=== PATIENT | male | born 1950 | race Caucasian/White ===

== ENCOUNTER → 2017-06-27 13:36 | Outpatient (CLI) | payer MEDICARE, OTHER, SELFPAY ==
--- NOTE | 2017-06-27 13:50 | CT_ITS ---
TECHNIQUE: Low dose scanning through the for the purposes of evaluating coronary artery calcification. Computer processing software analysis determined the calcium scoring FINDINGS The coronary artery calcium smart score is 46 = Imply reflecting mild plaque burden. Moderate cardiovascular disease risk . The heart appears normal in size no pericardial effusion. ascending aorta is upper normal caliber. 3.8 cm diameter maximally. Scant calcification is seen at only at the ascending aorta with no significant calcification at the aortic arch or descending aorta. But limited visualization of lungs with no remarkable findings. Mild chronic changes but no active disease.. Size IMPRESSION: 1. Coronary calcium score of 46 = mild plaque burden with moderate CVD risk.
== END ==
PROVIDERS: Family Provider Family Medicine; PCP Family Medicine; Visit Provider Internal Medicine
DX: I48.91 Unspecified atrial fibrillation (principal); R00.2 Palpitations; R42 Dizziness and giddiness; R06.83 Snoring; R53.83 Other fatigue
CPT/HCPCS: 75571

== ENCOUNTER → 2017-06-29 06:35 | Outpatient (CLI) | payer MEDICARE, OTHER, SELFPAY ==
--- NOTE | 2017-06-29 06:38 | NM_ITS ---
History and Indications: Hypertension, hyperlipidemia and family history Procedure: Patient received a 0.4 mg of Lexiscan, resting heart rate was 55 bpm, resting blood pressure 158/87, with scan maximum heart rate achieved 114 bpm, which is less than 85% of the maximum predicted heart rate and a blood pressure was 165/98. With Lexiscan patient complained of shortness of breath and nausea Electrocardiogram: Resting electrocardiogram showed sinus bradycardia, with Lexiscan occasional premature ventricular complex seen, there is less than 1.[address] segment depression noted from the baseline EKG. The EKG portion of the Lexiscan Myoview is nondiagnostic. Cardiac stress and resting SPECT images: Cardiac stress and resting SPECT images were Myoview 10.8 mCi at rest and 32.2 mCi at stress, gated SPECT further analysis of segmental wall motion and calculation of the ejection fraction also done. Cardiac stress and rest images show uniform myocardial activity without segmental perfusion abnormality, computer derived ejection fraction is 53% with no obvious regional wall motion abnormality, right ventricle is normal size and contractility. Conclusion: 1. The EKG portion of the Lexiscan Myoview is nondiagnostic. 2. No obvious scintigraphic evidence of reversible ischemia seen, computer derived ejection fraction is 53% with no obvious regional wall motion abnormality, right ventricle is normal size and contractility. 3. Normal Lexiscan Myoview study.
--- NOTE | 2017-06-29 07:37 | HMH.ITSHM ---
ELIQUIS MELOXICAM DILTIAZEM LOSARTAN RABEPRAZOLE SODIUM PROMETHAZINE CEPHALEXIN CYCLOBENZAPRINE
== END ==
PROVIDERS: Family Provider Family Medicine; PCP Family Medicine; Visit Provider Internal Medicine
DX: I48.0 Paroxysmal atrial fibrillation; R06.02 Shortness of breath; R11.0 Nausea
CPT/HCPCS: 78452; 93017; A9502; J2785

== ENCOUNTER → 2017-07-11 08:11 | Outpatient (CLI) | payer MEDICARE, OTHER, SELFPAY ==
[2017-07-11 09:32] LABS: Alanine Aminotransferase 34 U/L (12-78); Albumin Level 3.8 gm/dL (3.4-5.0); Alkaline Phosphatase 103 U/L (46-116); Aspartate Amino Transferase 19 U/L (15-37); Bilirubin,Direct 0.2 mg/dL (0.0-0.2); Bilirubin,Total 0.6 mg/dL (0.2-1.0); Chol/HDL Ratio 5.1 (1-3.5); Cholesterol 198 mg/dL (140-200); HDL Cholesterol 39 mg/dL (27-67); LDL Cholesterol 142 mg/dL (0-130); Total Protein,Serum 6.6 gm/dL (6.4-8.2); Triglycerides 85 mg/dL (30-200); VLDL Cholesterol 17 mg/dL (0-40)
== END ==
PROVIDERS: PCP Family Medicine; Visit Provider Internal Medicine Cardiovascular Disease
DX: R00.2 Palpitations (principal); R42 Dizziness and giddiness; R06.83 Snoring; I48.0 Paroxysmal atrial fibrillation; I10 Essential (primary) hypertension; R53.83 Other fatigue
CPT/HCPCS: 36415; 80061; 80076

== ENCOUNTER → 2017-10-05 07:14 | Outpatient (CLI) | payer MEDICARE, OTHER, SELFPAY ==
[2017-10-05 10:25] LABS: Chol/HDL Ratio 3.7 (1-3.5); Cholesterol 134 mg/dL (140-200); HDL Cholesterol 36 mg/dL (27-67); LDL Cholesterol 84 mg/dL (0-130); Triglycerides 70 mg/dL (30-200); VLDL Cholesterol 14 mg/dL (0-40)
[2017-10-06 11:56] LABS: Alanine Aminotransferase 29 U/L (12-78); Albumin Level 3.9 gm/dL (3.4-5.0); Alkaline Phosphatase 106 U/L (46-116); Aspartate Amino Transferase 19 U/L (15-37); Bilirubin,Direct 0.2 mg/dL (0.0-0.2); Bilirubin,Indirect 0.2 mg/dL (0.0-0.9); Bilirubin,Total 0.4 mg/dL (0.2-1.0); Total Protein,Serum 6.6 gm/dL (6.4-8.2)
== END ==
PROVIDERS: Visit Provider Internal Medicine Cardiovascular Disease
DX: R00.2 Palpitations (principal); I10 Essential (primary) hypertension; R42 Dizziness and giddiness; I48.0 Paroxysmal atrial fibrillation; R53.83 Other fatigue
CPT/HCPCS: 36415; 80061; 80076

== ENCOUNTER → 2017-12-06 08:12 | Outpatient (CLI) | payer MEDICARE, OTHER, SELFPAY ==
[2017-12-06 09:17] LABS: Alanine Aminotransferase 35 U/L (12-78); Albumin Level 3.8 gm/dL (3.4-5.0); Alkaline Phosphatase 108 U/L (46-116); Aspartate Amino Transferase 19 U/L (15-37); Bilirubin,Direct 0.1 mg/dL (0.0-0.2); Bilirubin,Indirect 0.5 mg/dL (0.0-0.9); Bilirubin,Total 0.6 mg/dL (0.2-1.0); Cholesterol 145 mg/dL (140-200); HDL Cholesterol 36 mg/dL (27-67); LDL Cholesterol 89 mg/dL (0-130); Total Protein,Serum 6.6 gm/dL (6.4-8.2); Triglycerides 102 mg/dL (30-200); VLDL Cholesterol 20 mg/dL (0-40)
== END ==
PROVIDERS: Family Provider Family Medicine; PCP Family Medicine; Visit Provider Internal Medicine Cardiovascular Disease
DX: E78.4 Other hyperlipidemia (principal); I48.0 Paroxysmal atrial fibrillation; R53.83 Other fatigue; R06.09 Other forms of dyspnea; I10 Essential (primary) hypertension
CPT/HCPCS: 36415; 80061; 80076

== ENCOUNTER → 2018-05-18 12:26 | Outpatient (CLI) | payer MEDICARE, OTHER, SELFPAY ==
--- NOTE | 2018-05-18 12:28 | XR_ITS ---
XR chest 2V HISTORY: ITS.REASON: amiodarone therapy ORDERING PHYSICIAN: DEVORA Allen PATIENT AGE: 67 years COMPARISON: None FINDINGS: There are no previous exams available for comparison. Unremarkable cardiovascular structures. Slight increased markings are present in the left perihilar region. These are nonspecific and could be due to area of scarring/volume loss. The findings are not typical for amiodarone lung however, that entity cannot be excluded. Consider follow-up exam. No lobar consolidation or collapse. No acute bony findings. Mild degenerative change thoracic spine. IMPRESSION: Slight increased markings in left perihilar region nonspecific and may due to an area of fibrosis or atelectasis. Not typical for amiodarone toxicity however follow-up is suggested to confirm stability
[2018-05-18 14:14] LABS: Alanine Aminotransferase 38 U/L (12-78); Alkaline Phosphatase 114 U/L (46-116); Aspartate Amino Transferase 19 U/L (15-37); Bilirubin,Direct 0.2 mg/dL (0.0-0.2); Bilirubin,Indirect 0.4 mg/dL (0.0-0.9); Bilirubin,Total 0.6 mg/dL (0.2-1.0); Free Thyroxine Index 3.6 ug/dL (5.93-13.13); T4 (Thyroxine) 11.9 ug/dl (4.7-13.3); Thyroid Stimulating Hormone 1.31 uIU/ml (0.358-3.740); Total Protein,Serum 6.9 gm/dL (6.4-8.2); Triiodothryronine (T3) Uptake 30 % (31-39)
== END ==
PROVIDERS: PCP Family Medicine; Visit Provider Physician Assistant
DX: Z79.899 Other long term (current) drug therapy (principal)
CPT/HCPCS: 36415; 71046; 80076; 84436; 84443; 84479

== ENCOUNTER → 2019-01-24 10:34 | Outpatient (CLI) | payer MEDICARE, BC, SELFPAY ==
--- NOTE | 2019-01-24 | ECG_ITS ---
APPROVED REPORT Exam: Resting ECG HR:90 bpm ECG Measurements Heart Rate 90 AXES QRSd 78 QRS 65 QT 364 T -11 QTc 445 <Conclusion> Atrial flutter with variable AV block Abnormal QRS-T angle, consider primary T wave abnormality Abnormal ECG Electronically signed by : Christopher Martins, 01/25/2019 08:57:57
== END ==
PROVIDERS: PCP Family Medicine; Visit Provider Internal Medicine Cardiovascular Disease
DX: I48.91 Unspecified atrial fibrillation (principal)
CPT/HCPCS: 93005

== ENCOUNTER 2019-02-03 12:56 | Inpatient (IN) ==
[2019-02-03 13:19] LABS: Basophils % 0.4 % (0.1-2.0); Eosinophils % 0.7 % (0.1-12.0); Hematocrit 45.6 % (42.0-52.0); Hemoglobin 15.2 g/dL (14.1-18.0); Lymphocytes # 1.3 K/mm3 (0.7-4.5); Lymphocytes % 28.6 % (10-50); Mean Corpuscular HGB Conc 33.4 g/dL (31.8-35.4); Mean Corpuscular Volume 85.5 fl (80-94); Mean Platelet Volume 8.4 fl (7.4-10.4); Monocytes # 0.4 K/mm3 (0.1-1.0); Monocytes % 7.5 % (1.7-9.3); Neutrophils # 2.9 K/mm3 (1.8-7.8); Neutrophils % 62.7 % (37.0-80.0); Platelet Count 167 K/mm3 (142-424); Red Blood Count 5.33 M/mm3 (4.60-6.20); Red Cell Distribution Width 12.9 % (11.5-17.5); White Blood Count 4.6 K/mm3 (4.8-10.8)
--- NOTE | 2019-02-03 13:27 | Emergency Department Note ---
ED Disposition Clinical Impression: Atrial flutter Qualifiers: Atrial flutter type: unspecified Qualified Code(s): I48.92 - Unspecified atrial flutter Disposition: Admitted as Observation Condition on Discharge: Fair Referrals: Christopher Cottrell MD [Primary Care Provider] - - Critical Care Critical Care Time: Yes Attestation: On 02/03/19, the high probability of a clinically significant, sudden or life threatening deterioration of the following system(s) required my full and direct attention, intervention and personal management. The time I documented below is in addition to time spent performing reported procedures but includes the following listed in this critical care notation. Total Critical Care Time: 40 Vital system(s) involved:: Circulatory Failure My critical care processes included: Assessment & monitoring of V/S, Initial and Re-exams, Data Review/Interpretation, Coordinating Care, Medication Orders and management, Documentation Medical Decision Making - Rainer Inquiry Pt receiving controlled substance: No Vital Signs: 02/03/19 13:22 02/03/19 13:29 02/03/19 13:40 Temperature 98 F Temperature Source Oral Pulse Rate [Left Radial] 188 H 183 H 183 H Respiratory Rate 22 22 Blood Pressure [Right Arm] 151/95 H 153/97 H 140/102 H Blood Pressure Mean [Right Arm] 113 115 114 Blood Pressure Source [Right Arm] Blood Pressure Position [Right Arm] Sitting Sitting Sitting 02 Sat by Pulse Oximetry 98 96 97 Oxygen Delivery Method Room Air Room Air Room Air 02/03/19 13:50 02/03/19 13:55 02/03/19 14:12 Temperature Temperature Source Pulse Rate [Left Radial] 99 H 94 H 66 Respiratory Rate Blood Pressure [Right Arm] 138/78 126/82 140/78 Blood Pressure Mean [Right Arm] 98 96 98 Blood Pressure Source [Right Arm] Automatic Cuff Blood Pressure Position [Right Arm] Sitting Sitting Sitting 02 Sat by Pulse Oximetry 94 L 94 L 97 Oxygen Delivery Method Room Air Room Air Room Air 02/03/19 14:34 02/03/19 15:00 02/03/19 15:42 Temperature Temperature Source Pulse Rate [Left Radial] 123 H 64 106 H Respiratory Rate Blood Pressure [Right Arm] 129/69 131/67 132/71 Blood Pressure Mean [Right Arm] 89 88 91 Blood Pressure Source [Right Arm] Automatic Cuff Automatic Cuff Automatic Cuff Blood Pressure Position [Right Arm] Sitting Sitting Sitting 02 Sat by Pulse Oximetry 96 95 97 Oxygen Delivery Method Room Air Room Air Room Air 02/03/19 16:16 Temperature Temperature Source Pulse Rate [Left Radial] 94 H Respiratory Rate Blood Pressure [Right Arm] 112/72 Blood Pressure Mean [Right Arm] 85 Blood Pressure Source [Right Arm] Automatic Cuff Blood Pressure Position [Right Arm] Sitting 02 Sat by Pulse Oximetry 96 Oxygen Delivery Method Room Air - Lab Data Lab Results 02/03/19 13:07: WBC 4.6 L, RBC 5.33, Hgb 15.2, Hct 45.6, MCV 85.5, MCH 28.6, MCHC 33.4, RDW 12.9, Plt Count 167, MPV 8.4, Neut % (Auto) 62.7, Lymph % (Auto) 28.6, [place] % (Auto) 7.5, Eos % (Auto) 0.7, Baso % (Auto) 0.4, Neut # (Auto) 2.9, Lymph # (Auto) 1.3, [place] # (Auto) 0.4, Eos # (Auto) 0.0, Baso # (Auto) 0.0 02/03/19 13:07: Sodium 141, Potassium 3.3 L, Chloride 102, Carbon Dioxide 26, Anion Gap 16.3 H, BUN 12, Creatinine 1.36 H, Estimated Creat Clear 56, Estimated GFR 52 L, Est GFR ( Amer) 63, Glucose 95, Calcium 9.5, Troponin I < 0.02 Result diagrams: 02/03/19 13:07 02/03/19 13:07 Orders (Tests/Meds): ED MEDICATIONS Generic Name Dose Route Start Last Admin Trade Name Freq PRN Reason Stop Dose Admin Diltiazem HCl 100 mg/ Sodium 100 mls @ 5 mls/hr 02/03/19 13:45 02/03/19 13:50 Chloride IV 03/05/19 13:44 5 mls/hr .Q20H NELLY Administration Protocol Discontinued Medications Generic Name Dose Route Start Last Admin Trade Name Freq PRN Reason Stop Dose Admin Adenosine 6 mg 02/03/19 14:01 02/03/19 13:05 Adenosine 6mg/2ml Vial IV 02/03/19 14:02 6 mg ONCE ONE Administration Adenosine 12 mg 02/03/19 14:01 08/31/19 13:18 Adenosine 6mg/2ml Vial IV 02/03/19 14:02 12 mg ONCE ONE Administration Diltiazem HCl 20 mg 02/03/19 13:31 02/03/19 13:45 Cardizem 25mg/5ml Vial IV 02/03/19 13:32 20 mg ONCE ONE Administration Potassium Chloride 40 meq 02/03/19 14:17 02/03/19 14:22 Klor-Con 20meq Tablet PO 02/03/19 14:18 40 meq ONCE ONE Administration - Radiology Data #1 Image(s): Chest Image Reviewed: Yes I reviewed the patient's radiology image Preliminary Findings: Normal/NAD - ECG Data Tracing #3 EKG interpreted by Pb Hardy MD: Rhythm: Narrow complex tachycardia, regular Rate: 190 [place]: normal Ectopy: none Conduction: normal ST Segment Changes: Nonspecific T Wave Changes: none Q Waves: none No evidence of acute ischemia or injury EKG #2 interpreted by Pb Hardy MD: Rhythm: Atrial flutter, variable block Rate: 103 [place]: normal Ectopy: none Conduction: normal ST Segment Changes: none T Wave Changes: none Q Waves: none No evidence of acute ischemia or injury EKG #3 interpreted by Pb Hardy MD: Rhythm: a. flutter Rate: 93 [place]: normal Ectopy: none Conduction: normal ST Segment Changes: none T Wave Changes: Biphasic Q Waves: none No evidence of acute ischemia or injury - Physician Consults Physician Consulted: Navarro Time: 13:29 Reason -: Cardiology Eval/Care Comment/Response: Agrees - a.flutter. Recommends diltiazem drip/bolus. Additional Consult: Navarro Time: 16:24 Reason -: Cardiology Eval/Care Comment/Response: Recommends admission overnight with continued diltiazem drip Additional Consult: Simba Time: 16:25 Reason -: Admission Comment/Response: Agrees to admit the patient to the hospital. We discussed the patient's clinical information, including history, exam, laboratory and radiology results and ED course. Per hospital procedure, I will write temporary bridge inpatient orders on the patient. Specific orders requested by the admitting physician: Continue diltiazem drip - Reevaluation(s) Time: 14:17 Reevaluation #1: now in a.fib with controlled rate. Medical Decision Narrative: Adenosine 6 mg administered. Heart rate decreased, but then fairly quickly returned to narrow complex tachycardia rate 180s. Adenosine 12 mg administered. Twelve-lead EKG obtained when heart rate slowed, this shows atrial flutter. He quickly returned to narrow complex rapid atrial flutter, rate 180s. Case then discussed with Dr. Briceño. General Adult HPI - General Stated complaint: chest pain, SOA Time Seen by Provider: 02/03/19 13:24 - History of Present Illness HPI narrative: Complains of tachycardia that began 1 hour prior to arrival. Slight chest heaviness. No shortness of breath or syncope. Has a history of atrial fibrillation. He sees Dr. Foss. He had an ablation done by Dr. Razo in [place] on January 08. He says that he had tachycardia about a week and a half ago that lasted for 2 days, rate in the 140s and 150s. He contacted Dr. Razo and was started on flecainide. That resolved. Today his heart rate was in the 180s 190s, which concerned him more, so he came to the emergency room. - Related Data Home Medications Medication Instructions Recorded Confirmed apixaban 5 mg tablet 5 mg PO BID 06/23/17 02/03/19 cyclobenzaprine 10 mg tablet 10 mg PO TID PRN 06/23/17 02/03/19 losartan 100 1 tab PO QDAY 06/23/17 02/03/19 mg-hydrochlorothiazide 25 mg tablet meloxicam 15 mg tablet 15 mg PO QDAY 06/23/17 02/03/19 promethazine 25 mg tablet 25 mg PO Q6H PRN 06/23/17 02/03/19 Rosuvastatin Calcium 10 mg PO DAILY 02/03/19 02/03/19 Allergies Allergy/AdvReac Type Severity Reaction Status Date / Time penicillin V Allergy Unknown I-RASH Verified 09/28/18 10:03 amiodarone AdvReac Verified 09/28/18 10:03 [facility] History - Hepatitis A Screen Attestation statement:: This patient has been screened for Hepatitis A risk factors. I have reviewed the patient's past medical history: Yes Medical History: Reports:: Atrial Fibrillation, Gastroesophageal Reflux Disease(GERD), Hypertension Other Surgeries: Yes: Skin Cancer Excision, Other (Oral Sx) - Social History Smoking Status: Former smoker Alcohol Intake: never Alcohol Intake Frequency:: holidays/special occasions only Substance Use Type: denies use Occupational Status: retired Housing: house Household Members: spouse Family Hx:: Coronary Artery Disease ROS Obtained: Yes All systems reviewed & no additional complaints - Cardiovascular Cardiovascular: Reports chest pain, Reports rapid heart rate, Denies fainting - Respiratory Respiratory: No dyspnea - Gastrointestinal Gastrointestingal: Denies: nausea, vomiting Physical Exam - General General appearance: alert, in no apparent distress - Head Head exam: atraumatic, normocephalic - Eye Eye exam: Present: normal appearance, EOMI - ENT ENT exam: Present: mucous membranes moist - Neck Neck exam: Present: normal inspection, trachea midline - Chest Chest inspection: Present: normal inspection, symmetric chest wall rise - Respiratory Respiratory exam: Present: normal lung sounds bilaterally. Absent: respiratory distress - Cardiovascular Cardiovascular exam: Present: tachycardia, normal heart sounds - Abdominal Exam Abdominal exam: Present: soft, distention, normal bowel sounds - Extremities Exam Extremities exam: Present: normal inspection, other - Neurological Exam Neurological exam: Present: alert, oriented X3 - Psychiatric Psychiatric exam: Present: normal affect, normal mood - Skin Skin exam: Present: warm, dry
[2019-02-03 13:31] LABS: Anion Gap 16.3 mEq/L (5-15); Blood Urea Nitrogen 12 mg/dL (7-18); Calcium 9.5 mg/dL (8.5-10.1); Carbon Dioxide 26 mmol/L (21.0-32.0); Chloride 102 mmol/L (98-107); Glucose 95 mg/dL (74-106); Sodium 141 mmol/L (136-145)
[2019-02-04 06:01] LABS: Anion Gap 12.5 mEq/L (5-15); Calcium 8.8 mg/dL (8.5-10.1)
--- NOTE | 2019-02-04 08:18 | History & Physical Report ---
*Admission Date: 02/03/19 *Chief complaint: Racing heart *History of present illness: 68-year-old male with history of atrial fibrillation who is status post cardiac ablation by Dr. Razo on January 08 presented to the emergency department with a racing heart and palpitations. Patient underwent his procedure on January [address] Razo. He reports 13 days later on January 21 he developed palpitations and was placed on bisoprolol 10 mg daily and flecainide 75 mg twice daily by Dr. Razo's office. Patient's pulse rate decreased to the high 40s and 50s with a decrease in his blood pressure during that time. Bisoprolol also upsets his stomach. He contacted Dr. Razo's office after 4 days of therapy and was advised to discontinue both the bisoprolol and the flecainide. Patient had been doing well for the past week when he once again developed racing heart yesterday. He contacted the on-call nurse through [facility] who instructed him to go to the nearest emergency department. In the emergency department he was tachycardic with a narrow complex tachycardia and heart rate in the 180s. Patient was given Identicard to slow his heart rate down. Once his heart rate had slowed to the lower 100s he was identified as being in atrial flutter. The ER physician contacted Dr. Briceño who recommended he be admitted on a Cardizem drip. Overnight patient's pulse rate has gradually come down to the point were at rest his pulse was in the 60s to 80s. At present pulse is in the high 90s and on telemetry monitoring he appears to be in a sinus rhythm. EKG is in process [facility] History I have reviewed the patient's past medical history: Yes Medical History: Reports:: Atrial Fibrillation, Gastroesophageal Reflux Disease(GERD), Hypertension Denies:: Cancer, Diabetes Mellitus Type 1, Diabetes Mellitus Type 2, MRSA *Have you ever received a pneumonia vaccine?: Yes *Have you received a flu vaccine this season?: No Other Surgeries: Yes: Skin Cancer Excision, Other (Oral Sx) Amputation: No - *Social History Smoking Status: Former smoker Alcohol Intake: never Alcohol Intake Frequency:: holidays/special occasions only Substance Use Type: denies use *Occupational Status:: retired Housing: house Household Members: spouse *Travel in the last 8 weeks: None Family Hx:: Coronary Artery Disease Review of Systems - Review of Systems Review of systems:: pertinent systems reviewed and negative unless documented below - *Cardiovascular Reports rapid, pounding, or irregular heartbeat - *Neurologic Denies fainting Meds Home Medications Medication Instructions Recorded Confirmed Type apixaban 5 mg tablet 5 mg PO BID 06/23/17 02/03/19 History cyclobenzaprine 10 mg tablet 10 mg PO TID PRN 06/23/17 02/03/19 History losartan 100 1 tab PO QDAY 06/23/17 02/03/19 History mg-hydrochlorothiazide 25 mg tablet meloxicam 15 mg tablet 15 mg PO QDAY 06/23/17 02/03/19 History promethazine 25 mg tablet 25 mg PO Q6H PRN 06/23/17 02/03/19 History Bisoprolol Fumarate [Bisoprolol 10 mg PO DAILY 02/04/19 02/04/19 History 10mg Tablet] Flecainide Acetate [Tambocor 50mg 75 mg PO BID 02/04/19 02/04/19 History tablet] Rosuvastatin Calcium 10 mg PO DAILY 02/04/19 02/04/19 History dilTIAZem HCl [Diltiazem 240mg 240 mg PO DAILY 02/04/19 02/04/19 History 24Hr ER Cap] Allergies Allergy/AdvReac Type Severity Reaction Status Date / Time atorvastatin Allergy Mild Unknown Verified 02/03/19 17:25 allergy reaction penicillin V Allergy Unknown I-RASH Verified 09/28/18 10:03 amiodarone AdvReac Verified 09/28/18 10:03 Exam Vital signs and Labs for Last 24 Hours: Temp Pulse Resp BP Pulse Ox 98.4 F 79 16 112/77 98 02/04/19 08:00 02/04/19 06:00 02/04/19 06:00 02/04/19 06:00 02/04/19 06:00 Laboratory Results - last 24 hr 02/03/19 13:07: WBC 4.6 L, RBC 5.33, Hgb 15.2, Hct 45.6, MCV 85.5, MCH 28.6, MCHC 33.4, RDW 12.9, Plt Count 167, MPV 8.4, Neut % (Auto) 62.7, Lymph % (Auto) 28.6, [place] % (Auto) 7.5, Eos % (Auto) 0.7, Baso % (Auto) 0.4, Neut # (Auto) 2.9, Lymph # (Auto) 1.3, [place] # (Auto) 0.4, Eos # (Auto) 0.0, Baso # (Auto) 0.0 02/03/19 13:07: Sodium 141, Potassium 3.3 L, Chloride 102, Carbon Dioxide 26, Anion Gap 16.3 H, BUN 12, Creatinine 1.36 H, Estimated Creat Clear 56, Estimated GFR 52 L, Est GFR ( Amer) 63, Glucose 95, Calcium 9.5, Troponin I < 0.02 02/04/19 05:20: Sodium 142, Potassium 3.5, Chloride 106, Carbon Dioxide 27, Anion Gap 12.5, BUN 10, Creatinine 1.17, Estimated Creat Clear 86, Estimated GFR 62, Est GFR ( Amer) 75, Glucose 93, Calcium 8.8 I & O for Last 24 hours: Intake & Output 02/01/19 02/02/19 02/03/19 02/04/19 11:59 11:59 11:59 11:59 Intake Total 556 / 556 Balance 556 / 556 Weight 226 lb 3 oz - Constitutional no acute distress - *Routine Neck Exam Present: supple, full ROM. Absent: JVD, carotid bruit - *Routine Respiratory Exam Present: CTA bilaterally - *Routine Cardiovascular Exam Present: RRR, Normal S1, Normal S2 - *Routine Abdominal Exam Present: soft, normoactive bowel sounds - *Routine Extremities Exam Absent: cyanosis, clubbing, edema Assessment and Plan (1) History of cardiac radiofrequency ablation Current visit: Yes Status: Acute Category: Surgical Code(s): Z98.890 - Other specified postprocedural states (2) Atrial flutter Current visit: Yes Status: Acute Qualifiers: Atrial flutter type: unspecified Qualified Code(s): I48.92 - Unspecified atrial flutter Category: Medical Code(s): I48.92 - Unspecified atrial flutter (3) Essential hypertension Current visit: Yes Status: Acute Category: Medical Code(s): I10 - Essential (primary) hypertension - Assessment and plan all Dx Assessment and Plan for all problems:: 1. Start bisoprolol 5 mg this a.m. Attempt to wean Cardizem drip. Repeat EKG this morning
--- NOTE | 2019-02-04 08:34 | Pharmacy Consult Notes ---
[facility] Pharmacy VTE Monitoring - Patient Demographics Admission date: 02/03/19 Report Date: 02/04/19 Time: 08:33 Allergies/Adverse Reactions: Patient Allergies atorvastatin Allergy (Mild, Verified 02/03/19 17:25) Unknown allergy reaction penicillin V Allergy (Unknown, Verified 09/28/18 10:03) I-RASH amiodarone Adverse Reaction (Verified 09/28/18 10:03) Height: 1.78 m Weight: 102.597 kg Patient Problems: Current Active Problems Atrial flutter (Acute) History of cardiac radiofrequency ablation (Acute) Essential hypertension (Acute) - VTE Risk Labs: VTE Related Lab Results Hgb 15.2 g/dL (14.1-18.0) 02/03/19 13:07 Hct 45.6 % (42.0-52.0) 02/03/19 13:07 Plt Count 167 K/mm3 (142-424) 02/03/19 13:07 BUN 10 mg/dL (7-18) 02/04/19 05:20 Creatinine 1.17 mg/dL (0.70-1.30) 02/04/19 05:20 Estimated Creat Clear 86 mL/min (50-200) 02/04/19 05:20 Was VTE Risk Assessment Performed: Yes VTE Score: 3 VTE Risk Level: Low Risk - Prophylaxis VTE Prophylaxis Ordered?: Yes Types of VTE Prophylaxis: Pharmacological Pharmacologic Type: Other (ELIQUIS ORDERED) - VTE Diagnosis Confirmed Treatment or plan recommended: Continue Current Treatment
--- NOTE | 2019-02-04 11:18 | Discharge Summary ---
General - General Admission date:: 02/03/19 Discharge date: 02/04/19 HPI HPI: 68-year-old male with history of atrial fibrillation who is status post cardiac ablation by Dr. Razo on January 08 presented to the emergency department with a racing heart and palpitations. Patient underwent his procedure on January [address] Razo. He reports 13 days later on January 21 he developed palpitations and was placed on bisoprolol 10 mg daily and flecainide 75 mg twice daily by Dr. Razo's office. Patient's pulse rate decreased to the high 40s and 50s with a decrease in his blood pressure during that time. Bisoprolol also upsets his stomach. He contacted Dr. Razo's office after 4 days of therapy and was advised to discontinue both the bisoprolol and the flecainide. Patient had been doing well for the past week when he once again developed racing heart yesterday. He contacted the on-call nurse through [facility] who instructed him to go to the nearest emergency department. In the emergency department he was tachycardic with a narrow complex tachycardia and heart rate in the 180s. Patient was given Identicard to slow his heart rate down. Once his heart rate had slowed to the lower 100s he was identified as being in atrial flutter. The ER physician contacted Dr. Briceño who recommended he be admitted on a Cardizem drip. Overnight patient's pulse rate has gradually come down to the point were at rest his pulse was in the 60s to 80s. At present pulse is in the high 90s and on telemetry monitoring he appears to be in a sinus rhythm. EKG is in process Hospital Course Hospital Course: Patient was placed on cardizem drip with gradual reduction in pulse to less than 100. Rhythm was identified as slow a-flutter on repeat EKG on 02/04. Patient was given bisoprolol 10mg and Diltiazem 120mg to maintain rate control. Reinitiation of anti-arrythmics was considered but decision was made to hold any anti-arrythmic. Patient had follow up with 's a-fib clinic on 02/06. He was discharged and will follow up as instructed. Objective Vital signs: Temp Pulse Resp BP Pulse Ox 98.4 F 79 16 112/77 97 02/04/19 08:00 02/04/19 06:00 02/04/19 06:00 02/04/19 06:00 02/04/19 08:00 Results Labs on day of discharge: Labs from last 24 hours 02/04/19 02/03/19 02/03/19 05:20 13:07 13:07 WBC 4.6 L RBC 5.33 Hgb 15.2 Hct 45.6 MCV 85.5 MCH 28.6 MCHC 33.4 RDW 12.9 Plt Count 167 MPV 8.4 Neut % (Auto) 62.7 Lymph % (Auto) 28.6 [place] % (Auto) 7.5 Eos % (Auto) 0.7 Baso % (Auto) 0.4 Neut # (Auto) 2.9 Lymph # (Auto) 1.3 [place] # (Auto) 0.4 Eos # (Auto) 0.0 Baso # (Auto) 0.0 Sodium 142 141 Potassium 3.5 3.3 L Chloride 106 102 Carbon Dioxide 27 26 Anion Gap 12.5 16.3 H BUN 10 12 Creatinine 1.17 1.36 H Estimated Creat Clear 86 56 Estimated GFR 62 52 L Est GFR ( Amer) 75 63 Glucose 93 95 Calcium 8.8 9.5 Troponin I < 0.02 DS: Diagnosis - Discharge Diagnosis (1) Atrial flutter Status: Acute (2) History of cardiac radiofrequency ablation Status: Acute (3) Essential hypertension Status: Acute Discharge Plan - Patient Discharge Instructions ACTIVITY: Continue current activity DIET: continue same diet Patient Instructions: Atrial Flutter, DI for Atrial Flutter - Follow up Plan Follow up with: Tristin Razo [Referring] - Disposition: Home, Self-[facility] Medications: Home Medications Medication Instructions Recorded Confirmed Type apixaban 5 mg tablet 5 mg PO BID 06/23/17 02/03/19 History cyclobenzaprine 10 mg tablet 10 mg PO TIDP PRN 06/23/17 02/04/19 History losartan 100 1 tab PO DAILY 06/23/17 02/04/19 History mg-hydrochlorothiazide 25 mg tablet meloxicam 15 mg tablet 15 mg PO DAILY 06/23/17 02/04/19 History promethazine 25 mg tablet 25 mg PO Q6HP PRN 06/23/17 02/04/19 History Bisoprolol Fumarate [Bisoprolol 10 mg PO DAILY #30 tab 02/04/19 Rx 10mg Tablet] Rosuvastatin Calcium 10 mg PO HS 02/04/19 02/04/19 History dilTIAZem HCl [Diltiazem ER] 240 mg PO DAILY #30 cap.er.deg 02/04/19 Rx Prescriptions/Medication Reconciliation: New Bisoprolol Fumarate [Bisoprolol 10mg Tablet] 10 mg PO DAILY #30 tab dilTIAZem HCl [Diltiazem ER] 240 mg PO DAILY #30 cap.er.deg Continued apixaban 5 mg tablet 5 mg PO BID meloxicam 15 mg tablet 15 mg PO DAILY losartan 100 mg-hydrochlorothiazide 25 mg tablet 1 tab PO DAILY cyclobenzaprine 10 mg tablet 10 mg PO TIDP PRN PRN Reason: Muscle Spasm promethazine 25 mg tablet 25 mg PO Q6HP PRN PRN Reason: Nausea Rosuvastatin Calcium 10 mg PO HS - Problem Reconciliation Problems Reviewed?: Yes
--- NOTE | 2019-02-05 17:02 | Electrocardiograph Report ---
APPROVED REPORT Exam: Resting ECG HR:101 bpm ECG Measurements Heart Rate 101 AXES OR 244 P 76 QRSd 82 QRS -20 QT 334 T-9 QTc 433 <Conclusion> Atrial Flutter,2 to 1 AV Conduction Left Spiro Deviation Poor R Wave Progession Abnormal ECG Electronically signed by : Jacinto Suazo, 02/05/2019 17:02:03
--- NOTE | 2019-02-05 17:07 | Electrocardiograph Report ---
APPROVED REPORT Exam: Resting ECG HR:190 bpm ECG Measurements Heart Rate 190 AXES QRSd 76 QRS 48 QT 238 T83 QTc 423 <Conclusion> Supraventricular tachycardia ST depression, consider subendocardial injury or digitalis effect Abnormal ECG Electronically signed by : Jacinto Suazo, 02/05/2019 17:07:02
== END 2019-02-04 12:50 | disposition home or self-care (01) | DRG 310 ==
LOC: 2ND 12:56 → ER 12:56 → 2ND 17:39
PROVIDERS: ADMIT Family Medicine; ATTEND Family Medicine

== ENCOUNTER → 2019-02-09 09:32 | Outpatient (CLI) | payer MEDICARE, BC, SELFPAY ==
--- NOTE | 2019-02-09 09:45 | ECG_ITS ---
APPROVED REPORT Exam: Resting ECG HR:49 bpm ECG Measurements Heart Rate 49 AXES TN 172 P 55 QRSd 78 QRS 49 QT 472 T 37 QTc 426 <Conclusion> Marked sinus bradycardia Abnormal ECG Electronically signed by : Christopher Martins, 02/12/2019 18:04:22
== END ==
PROVIDERS: PCP Family Medicine; Visit Provider Internal Medicine Cardiovascular Disease
DX: I48.1 Persistent atrial fibrillation (principal)
CPT/HCPCS: 93005

== ENCOUNTER → 2020-10-16 11:29 | Outpatient (CLI) | payer MEDICARE, BC, SELFPAY | PROVIDERS: Visit Provider Internal Medicine Cardiovascular Disease | DX: Z01.812 Encounter for preprocedural laboratory examination (principal); Z20.822 Contact with and (suspected) exposure to COVID-19; I48.4 Atypical atrial flutter | CPT/HCPCS: U0003 ==

== ENCOUNTER 2020-10-17 12:57 | Day surgery (SDC) | payer MEDICARE, BC, SELFPAY ==
[2020-10-17 13:24] VITALS: BP 146/86; PULSE 65; RESP 16; O2SAT 95
[2020-10-17 13:28] VITALS: BP 172/85; PULSE 72; RESP 18; TEMP 36.9; O2SAT 95
--- NOTE | 2020-10-17 13:29 | P.PN_ITS ---
[facility] Anesthesia Checklist - Patient Identification Patient Identification: Arm Band - Structural Data Admitted From: Home Planned Operative Procedure/s: Cardioversion Consent for Planned Operative Procedure(s) Verified: Yes - NPO Status Verified Time NPO: 00:00 - Airway Assessment C-Spine Mobility Assessed: Yes TMJ Mobility Assessed: Yes Dentition: Good Dentition - Neurological Assessment Level of Consciousness: Awake Hx Seizures: No Numbness or tingling in extremities: No - Anesthesia Plan Anesthesia Risk discussed: Yes Anesthesia Plan: Verified ASA Class: III Anesthesia Type: MAC [facility] History I have reviewed the patient's past medical history: Yes Medical History: Reports:: Atrial Fibrillation, Gastroesophageal Reflux Disease(GERD), Hypertension Denies:: Cancer, Diabetes Mellitus Type 1, Diabetes Mellitus Type 2, MRSA *Have you ever received a pneumonia vaccine?: Yes *Have you received a flu vaccine this season?: Yes Anesthesia experience/problems:: None Other Surgeries: Yes: Skin Cancer Excision, Other (Oral Sx) Amputation: No - *Social History Last grade of school completed: High school graduate Smoking Status: Former smoker Alcohol Intake: never Alcohol Intake Frequency:: holidays/special occasions only Substance Use Type: denies use *Occupational Status:: employed Housing: house Household Members: spouse *Travel in the last 8 weeks: None Family Hx:: Coronary Artery Disease
[2020-10-17 13:30] VITALS: BP 143/84; PULSE 70; RESP 16; O2SAT 97
[2020-10-17 13:32] VITALS: PULSE 118
--- NOTE | 2020-10-17 13:37 | SUR.OPER ---
Cardioversion complete. patient in sinus rhythm.
--- NOTE | 2020-10-17 13:49 | SUR.PHASEII ---
Patient cardioverted 150 edgar into sinus rhythm
[2020-10-17 13:50] VITALS: BP 143/93; PULSE 66; RESP 16; O2SAT 97
--- NOTE | 2020-10-20 08:03 | HMH.CARDIO ---
[facility] Cardioversion Date: 10/17/20 Provider:: DOUG Foss MD Procedure Performed:: Synchronized electrical cardioversion Diagnosis:: Atrial flutter Procedure Summary:: Patient was brought to the cardiac Order Tracer as an outpatient. After informed consent was obtained, anesthesia provided sedation and patient received a synchronized shock of 150 J x 1 which converted him from atrial flutter to sinus rhythm. Patient tolerated the procedure well. Plan will be to discharge home on home medications with follow-up in the near future. Complications:: None Conculsion:: Successful electrical cardioversion from atrial flutter to sinus rhythm. Resume home medications. Routine postop care. Follow-up in our office in 1 to 2 weeks.
== END 2020-10-17 13:58 | disposition home or self-care (01) ==
LOC: CATHLAB 12:58
PROVIDERS: PCP Family Medicine; Visit Provider Internal Medicine
PROC: 5A2204Z Restoration of Cardiac Rhythm, Single (ICD-10-PCS; principal; 2020-10-17 13:30)
DX: I48.92 Unspecified atrial flutter (principal); I10 Essential (primary) hypertension; E78.2 Mixed hyperlipidemia; I25.10 Atherosclerotic heart disease of native coronary artery without angina pectoris; Z88.0 Allergy status to penicillin; Z88.8 Allergy status to other drugs, medicaments and biological substances; K21.9 Gastro-esophageal reflux disease without esophagitis
CPT/HCPCS: 92960

== ENCOUNTER → 2021-06-29 09:43 | Outpatient (CLI) | payer MEDICARE, BC, SELFPAY ==
[2021-06-29 12:16] LABS: Anion Gap 12.5 mEq/L (5-15); Blood Urea Nitrogen 20 mg/dl (9-20); Calcium 8.7 mg/dl (8.4-10.2); Carbon Dioxide 29 mmol/L (22.0-30.0); Chloride 101 mmol/L (98-107); Estimated Glomerular Filt Rate 74 ml/min (>60); GFR (African American) 89 ML/MIN (>60); Glucose 124 mg/dl (74-100); Potassium 3.5 mmoL/L (3.5-5.1); Sodium 139 mmol/L (136-145)
== END ==
PROVIDERS: PCP Family Medicine; Visit Provider Nurse Practitioner Family
DX: E78.5 Hyperlipidemia, unspecified (principal); I10 Essential (primary) hypertension; I48.91 Unspecified atrial fibrillation; R06.00 Dyspnea, unspecified; Z98.890 Other specified postprocedural states
CPT/HCPCS: 36415; 80048

== ENCOUNTER → 2022-08-25 09:51 | Outpatient (CLI) | payer MEDICARE, BC, SELFPAY ==
--- NOTE | 2022-08-25 09:53 | CA_ITS ---
APPROVED REPORT EXAM: Comprehensive 2D, Doppler, and color-flow Echocardiogram Dead Mail Checker: Anna Worthy CRT Ht: 5 ft 10 in Wt: 227lbs BSA: 2.20 BP: 190/102 mmHg Indications: Atrial Fibrillation, CAD, Hyperlipidemia, Hypertension/HDD, ablation 2D Dimensions LVOT 1.71 cm (M/F) 1.5-2.5 LA Volume 56.80 mL LA Volume Index 25.10 mL/m2 (M/F) 16-34 M-Mode Dimensions RVDd 2.05 cm (0.9-2.6) LA Diam 4.27 cm (1.9-4.0) LVDd 6.47 cm (3.5-5.7) Ao Diam 3.87 cm (2.0-3.7) LVDs 4.90 cm (3.5-5.7) IVSd 1.49 cm (0.6-1.1) PWd 0.92 cm (0.6-1.1) EF (Teich) 47.20% FS 24.30% EDV (Teich) 213.70 mL TAPSE 2.70 (<1.7) ESV (Teich) 112.80 mL LV Diastology E Decel Time 210.00 (160-240 msec) E/A Ratio 1.77 MED E' 7.90 (< 7 cm/sec) MED A' 7.70 cm/s E'/MED E' Ratio 14.15 (>14) LAT E' 8.40 (<10 cm/sec) LAT A' 6.00 cm/s E/LAT E' Ratio 13.31 (>14) Aortic Valve AI PHT 409.00 ms AO Peak GR. 10.50 mmHg Mitral Valve MV A Velocity 63.00 (40-130 cm/s) E/A Ratio 1.77 MV Decel. Time 210.00 (160-240 ms) Pulmonary Valve PV Peak Velocity 129.00 (50-150 cm/s) Tricuspid Valve TR P. Velocity 357.00 cm/s RAP Estimate 10.00 mmHg RVSP 61.10 mmHg Left Ventricle Left atrium is mildly enlarged, left ventricle is normal size mild concentric left ventricular hypertrophy, estimated ejection fraction 55% with no regional wall motion abnormality, grade 2 diastolic dysfunction seen without tissue Doppler evidence of raise left atrial pressure. Right Ventricle Right atrium and right ventricular normal size and contractility. Aortic Valve Aortic valve is minimally thickened and fibrosed there is no aortic stenosis or aortic insufficiency. Mitral Valve Mitral valve is grossly normal, there is trace mitral regurgitation. Tricuspid Valve Tricuspid valve grossly normal, there is trace tricuspid regurgitation, tricuspid regurgitation jet velocity is inadequate for calculation of the right ventricular systolic pressure. Pulmonic Valve Pulmonic valve is poorly visualized. Great Vessels Aortic root is normal size. Inferior vena cava is normal size with normal inspiratory collapse. Pericardium No significant pericardial effusion noted. Conclusion 1. Mildly enlarged left atrium, normal left ventricular size, mild concentric left ventricular hypertrophy, estimated ejection fraction 55% with no regional wall motion abnormality, grade 2 diastolic dysfunction seen without tissue Doppler evidence of late left atrial pressure. 2. Trace mitral and tricuspid regurgitation. 3. No significant pericardial effusion noted. 4. Inferior vena cava is normal size with normal inspiratory collapse. Electronically signed by : Rodríguez Foss MD 08/26/2022 06:06:44
== END ==
PROVIDERS: PCP Family Medicine; Visit Provider Physician Assistant
DX: E78.2 Mixed hyperlipidemia (principal); I10 Essential (primary) hypertension; I25.10 Atherosclerotic heart disease of native coronary artery without angina pectoris; I48.0 Paroxysmal atrial fibrillation; Z98.890 Other specified postprocedural states
CPT/HCPCS: 93306

== ENCOUNTER → 2023-02-10 11:42 | Outpatient (CLI) | payer MEDICARE, BC, SELFPAY ==
--- NOTE | 2023-02-10 | CA_ITS ---
APPROVED REPORT Exam: Exercise Treadmill Technologist: Riddhi Harrell, Ht: 5 ft 10 in Wt: 227 lbs BSA: 2.20 m2 HR: 63 bpm BP: 166/87 mmHg Rhythm: NSR, T WAVE ABNS IN INFERIOR LEADS Medical History Medical History: HTN, Hyperlipidemia Medications: Amlodipine,,,,, Flecainide,,,,, Metoprolol Succinate,,,,, Nexium,,,,, XaRELTO,,,,, Losartan HCT,,,,, Cyclobenzaprine,,,,, RoSUVASTATIN,,,,, Allergies: ATORVASTATIN, PCN, AMIODARONE Cardiac Risk Factors: HTN, , Hyperlipidemia, Smoking Stress Test Details Test: Booker HR Resting HR: 74 bpm Max Heart Rate (APMHR): 147 bpm Max HR Achieved: 135 bpm Target HR (85% APMHR): 125 bpm % of APMHR: 92 Recovery HR: 82 bpm HR response to stress: Normal HR response to stress BP Resting BP: 166.0/87 mmHg Max BP: 202/70 mmHg Recovery BP: 165.0/78.0 mmHg BP response to stress: Abnormal hypertensive response to stress. ECG Resting ECG: NSR, T WAVE, ABNS IN INFERIOR LEADS Stress EC.[address] DEPRESSION Arrhythmia: PVCS, VENTRICULAR COUPLET Recovery ECG: RETURN TO BASELINE WITHIN 3 MINUTES OF RECOVERY Recovery Arrhythmia: PVCS Clinical Exercise duration: 06:30 min Highest Stage Achieved: Exercise capacity: 7.0 METs Overall Exercise Capacity for Age: Average Stress ECG Conclusion The patient was able to exercise for a total of 6 minutes, 30 seconds. He achieved a total of 7 METS. He has an average exercise capacity compared to age and sex matched peers. He has normal HR, but exaggerated BP, response to exercise. MAX HR: 132 % OF PM: 90% MAX BP: 194/80 METS: 7.0 TEST STOPPED DUE TO: SOA NO CP OCCASIONAL PVCS, ONE VENTRICULAR COUPLET 0.[address] DEPRESSION AT PEAK STRESS CONCLUSION AVERAGE EXERCISE CAPACITY HYPERTENSIVE RESPONSE TO EXERCISE ECG STRESS TEST SUGGESTIVE OF POSSIBLE ISCHEMIA MYOVIEW IMAGES REPORTED SEPARATELY Test Summary REST . . . . . . . Standing REST . . . . . . . Sitting Sitting Sitt REST 05:02 0.0 0.0 74 . 166/ 87 . . Stage 1 01:00 10.0 1.7 91 . . . . Stage 1 02:00 10.0 1.7 98 . . . . Stage 1 03:00 10.0 1.7 100 . 186/ 82 . . Stage 2 01:00 12.0 2.5 115 . . . . Stage 2 02:00 12.0 2.5 120 . . . . Stage 2 03:00 12.0 2.5 125 . 194/ 80 . . Stage 3 00:30 14.0 3.4 131 . . . Stop exercise at 06:30 RECOVERY 01:00 0.0 0.0 123 . . . . RECOVERY 02:00 0.0 0.0 97 . . . . RECOVERY 03:00 0.0 0.0 89 . 181/ 69 . . RECOVERY 04:00 0.0 0.0 86 . 202/ 70 . . RECOVERY 05:00 0.0 0.0 82 . 169/ 76 . . RECOVERY 05:17 0.0 0.0 82 . 165/ 78 . . Electronically signed by : Skylar Taylor, 02/17/2023 23:34:24
--- NOTE | 2023-02-10 11:42 | NM_ITS ---
APPROVED REPORT Exam: Nuclear Stress Test Indication: CAD, DYSRHYTHMIA, HTN, HYPERL;IPIDEMIA, FM HX, A-FIB, PALPITATIONS, FATIGUE Patient Location: Outpatient Stress Tech: Riddhi Harrell [place] Tech:Awilda Ingram, ARRHarman RT(R)(N) Ht: 5 ft 10 in Wt: 227 lbs HR: 74 bpm BP: 166/87 mmHg BSA: 2.20 m2 Rhythm: NSR TID: 1.05 BMI: 32.5 History: CAD, DYSRHYTHMIA, HTN, HYPERLIPIDEMIA, FM HX, A-FIB, PALPITATIONS, FATIGUE Procedure: Patient exercised on Booker protocol 6:30 minutes and sec, resting heart rate 74 bpm, resting blood pressure 166/87 mmHg, with exercise maximum heart rate achived was 135 bpm which is 92 % of the maximum predicted heart rate and blood pressure was 202/70 mmHg. Test was stopped due to FATIGUE. Patient has Average exercise capacity, achieved 7.0 METs of workload on treadmill, the blood pressure response to exercise was Hypertensive. Cardiac Stress and Resting SPECT Images: Cardiac Stress and Resting SPECT images were obtained using technetium 99m Myoview 30.3 mCi stress and 10.36 mCi at rest. Resting and stress imaging in both supine and prone positions demonstrate no evidence of fixed or reversible perfusion defects. Gated imaging demonstrates normal global and regional LV systolic function. LVEF is calculated at 65%. Conclusion: No evidence of fixed or reversible perfusion defects. Gated imaging demonstrates normal global and regional LV systolic function. LVEF is calculated at 65%. Of note, the patient had hypertensive response to exercise. BP control is recommended. Electronically signed by : Skylar Taylor, 02/17/2023 23:36:23
== END ==
PROVIDERS: PCP Family Medicine; Visit Provider Internal Medicine
DX: E78.5 Hyperlipidemia, unspecified (principal); I10 Essential (primary) hypertension; I25.10 Atherosclerotic heart disease of native coronary artery without angina pectoris; I48.0 Paroxysmal atrial fibrillation; I51.89 Other ill-defined heart diseases; Z98.890 Other specified postprocedural states
CPT/HCPCS: 78452; 93017; A9502

== ENCOUNTER 2023-08-10 07:08 | Outpatient (CLI) | payer MEDICARE, BC, SELFPAY ==
[2023-08-10 07:43] LABS: Basophils % 0.8 % (0.1-2.0); Eosinophils # 0.1 K/mm3 (0.0-0.4); Eosinophils % 1.8 % (0.1-12.0); Hematocrit 44.1 % (42.0-52.0); Hemoglobin 14.9 g/dL (14.1-18.0); Lymphocytes # 1.4 K/mm3 (0.7-4.5); Lymphocytes % 31.1 % (10-50); Mean Corpuscular HGB Conc 33.7 g/dL (31.8-35.4); Mean Corpuscular Hemoglobin 29.6 pg (27.0-31.2); Mean Corpuscular Volume 87.9 fl (80-94); Mean Platelet Volume 8.5 fl (7.4-10.4); Monocytes # 0.3 K/mm3 (0.1-1.0); Monocytes % 7.6 % (1.7-9.3); Neutrophils # 2.6 K/mm3 (1.8-7.8); Neutrophils % 58.7 % (37.0-80.0); Platelet Count 148 K/mm3 (142-424); Red Blood Count 5.01 M/mm3 (4.60-6.20); Red Cell Distribution Width 13.7 % (11.5-17.5); White Blood Count 4.4 K/mm3 (4.8-10.8)
[2023-08-10 09:51] LABS: Alanine Aminotransferase 31 U/L (12-78); Albumin Level 4.3 g/dl (3.5-5.0); Alkaline Phosphatase 94 U/L (38-126); Anion Gap 10.1 mEq/L (5-15); Aspartate Amino Transferase 36 U/L (17-59); Bilirubin,Direct 0.2 mg/dl (0.0-0.4); Bilirubin,Indirect 0.4 mg/dL (0.0-0.9); Bilirubin,Total 0.6 mg/dl (0.2-1.3); Bilirubin,Unconjugated 0.4 mg/dL (0.0-1.1); Blood Urea Nitrogen 20 mg/dl (9-20); Calcium 8.8 mg/dl (8.4-10.2); Carbon Dioxide 28 mmol/L (22.0-30.0); Chloride 107 mmol/L (98-107); Chol/HDL Ratio 4.1 (1-3.5); Cholesterol 136 mg/dl (140-200); Estimated Glomerular Filt Rate 66 ml/min (>60); GFR (African American) 79 ML/MIN (>60); Glucose 99 mg/dl (74-100); HDL Cholesterol 33 mg/dl (40-60); Potassium 3.1 mmoL/L (3.5-5.1); Sodium 142 mmol/L (136-145); Total Protein,Serum 6.4 g/dl (6.3-8.2); Triglycerides 104 mg/dl (30-150); VLDL Cholesterol 21 mg/dL (0-40)
[2023-08-10 10:02] LABS: Direct LDL Cholesterol 75.01 mg/dL (100-129)
[2023-08-10 10:08] LABS: Free T4 (Free Thyroxine) 1.09 ng/dl (0.78-2.19)
[2023-08-10 10:21] LABS: Thyroid Stimulating Hormone 1.78 uIU/mL (0.465-4.68)
== END 2023-08-10 23:59 ==
PROVIDERS: PCP Family Medicine; Visit Provider Physician Assistant
DX: R06.00 Dyspnea, unspecified; I48.0 Paroxysmal atrial fibrillation; I25.10 Atherosclerotic heart disease of native coronary artery without angina pectoris; I11.9 Hypertensive heart disease without heart failure; E11.9 Type 2 diabetes mellitus without complications; E78.5 Hyperlipidemia, unspecified; K21.9 Gastro-esophageal reflux disease without esophagitis; Z98.890 Other specified postprocedural states; Z79.899 Other long term (current) drug therapy
CPT/HCPCS: 36415; 80048; 80061; 80076; 84439; 84443; 85025

== ENCOUNTER 2023-08-22 10:06 | Outpatient (CLI) | payer MEDICARE, BC, SELFPAY ==
--- NOTE | 2023-08-22 10:15 | CA_ITS ---
APPROVED REPORT EXAM: Comprehensive 2D, Doppler, and color-flow Echocardiogram Shotblast Equipment Operator: Sherly Iglesias RVT Ht: 5 ft 10 in Wt: 237lbs BSA: 2.24 BP: 157/71 mmHg Indications: CAD,A-FIB,DD,HTN,HLD,PALPS,RAMOS,HX ABLATION TDS-OVERLAYING LUNG AND BODY HABITUS 2D Dimensions LA Volume 42.80 mL LA Volume Index 19.02 mL/m2 (M/F) 16-34 M-Mode Dimensions RVDd 2.53 cm (0.9-2.6) LA Diam 4.80 cm (1.9-4.0) LVDd 5.46 cm (3.5-5.7) LVDs 3.49 cm (3.5-5.7) IVSd 1.12 cm (0.6-1.1) PWd 0.60 cm (0.6-1.1) EF (Teich) 65.20% FS 36.10% EDV (Teich) 145.00 mL TAPSE 3.01 (<1.7) ESV (Teich) 50.50 mL LV Diastology E Decel Time 150 (160-240 msec) E/A Ratio 3.0 Aortic Valve ROSA Index 1.02 cm2/m2 AoV Peak Sebastian. 160.0 (50-130 cm/s) AO Peak GR. 10.20 mmHg AO Mean GR. 5.60 (<5 mmHg) AO VTI 41.8 (18-25 cm) ROSA (VTI) 2.35 (2.5-4.5 cm2) Mitral Valve MV E Max Sebastian. 114.0 (40-130 cm/s) MV A Velocity 38.0 (40-130 cm/s) E/A Ratio 2.97 MV PHT 44.0 ms Pulmonary Valve PV Peak Velocity 110.0 (50-150 cm/s) Tricuspid Valve TR P. Velocity 339.00 cm/s RAP Estimate 10.00 mmHg RVSP 56.00 mmHg Left Ventricle The left ventricle is normal size. The left ventricular systolic function is normal. The left ventricular ejection fraction is within the normal range. There is increased LV wall thickness. There is normal LV segmental wall motion. Diastolic function is indeterminate. LVEF is 55%. Right Ventricle Right ventricle is mildly dilated. Right ventricle is mildly hypokinetic. Atria The left atrium size is normal. The right atrium size is normal. There is no Doppler evidence of interatrial shunt. Aortic Valve The aortic valve is mildly thickened. There is no aortic valvular stenosis. No aortic regurgitation is present. Mitral Valve The mitral valve leaflets are mildly thickened. Mild mitral regurgitation. No evidence of mitral valve stenosis. Tricuspid Valve The tricuspid valve leaflets are thin and pliable. Mild tricuspid regurgitation. RVSP is 20-25 mmHg. Pulmonic Valve The pulmonary valve is normal in structure. Trace pulmonic regurgitation. Great Vessels The aortic root is normal in size. The ascending aorta is normal in size. IVC is normal in size and collapses >50% with inspiration. Pericardium There is no pericardial effusion. An epicardial fat pad is noted. Other Information Study Quality: Fair Conclusion Normal LV systolic function. Mild RV dilation with mild reduction in RV function. Mild MR, mild TR. Electronically signed by : Skylar Taylor MD 08/23/2023 11:59:42
== END 2023-08-22 23:59 ==
LOC: RT 10:06
PROVIDERS: PCP Family Medicine; Visit Provider Physician Assistant
DX: I11.9 Hypertensive heart disease without heart failure (principal); I25.10 Atherosclerotic heart disease of native coronary artery without angina pectoris; I48.0 Paroxysmal atrial fibrillation; E78.5 Hyperlipidemia, unspecified; Z87.891 Personal history of nicotine dependence; Z98.890 Other specified postprocedural states
CPT/HCPCS: 93306

== ENCOUNTER 2023-10-03 09:53 | Outpatient (CLI) | payer MEDICARE, BC, SELFPAY | END 2023-10-03 23:59 | disposition home or self-care (01) | LOC: RT 09:54 | PROVIDERS: PCP Family Medicine; Visit Provider Physician Assistant | DX: I48.92 Unspecified atrial flutter (principal); I48.0 Paroxysmal atrial fibrillation | CPT/HCPCS: 93270 ==

== ENCOUNTER 2024-04-19 10:32 | Outpatient (CLI) | payer MEDICARE, BC, SELFPAY ==
[2024-04-19 11:19] LABS: Basophils % 0.8 % (0.1-2.0); Eosinophils % 0.7 % (0.1-12.0); Hematocrit 44.4 % (42.0-52.0); Hemoglobin 15.4 g/dL (14.1-18.0); Lymphocytes % 20.4 % (10-50); Mean Corpuscular HGB Conc 34.7 g/dL (31.8-35.4); Mean Corpuscular Hemoglobin 29.4 pg (27.0-31.2); Mean Corpuscular Volume 84.7 fl (80-94); Mean Platelet Volume 8.3 fl (7.4-10.4); Monocytes # 0.4 K/mm3 (0.1-1.0); Monocytes % 8.2 % (1.7-9.3); Neutrophils # 3.5 K/mm3 (1.8-7.8); Neutrophils % 69.9 % (37.0-80.0); Platelet Count 152 K/mm3 (142-424); Red Blood Count 5.25 M/mm3 (4.60-6.20)
[2024-04-19 11:42] LABS: Alanine Aminotransferase 19 U/L (12-78); Albumin Level 4.4 g/dl (3.5-5.0); Alkaline Phosphatase 94 U/L (38-126); Anion Gap 12.7 mEq/L (5-15); Aspartate Amino Transferase 24 U/L (17-59); Bilirubin,Direct 0.3 mg/dl (0.0-0.4); Bilirubin,Indirect 0.4 mg/dL (0.0-0.9); Bilirubin,Total 0.7 mg/dl (0.2-1.3); Bilirubin,Unconjugated 0.5 mg/dL (0.0-1.1); Blood Urea Nitrogen 18 mg/dl (9-20); Calcium 8.8 mg/dl (8.4-10.2); Carbon Dioxide 28 mmol/L (22.0-30.0); Chloride 101 mmol/L (98-107); Cholesterol 125 mg/dl (140-200); Estimated Glomerular Filt Rate 59 ml/min (>60); GFR (African American) 72 ML/MIN (>60); Glucose 97 mg/dl (74-100); HDL Cholesterol 41 mg/dl (40-60); Potassium 3.7 mmoL/L (3.5-5.1); Sodium 138 mmol/L (136-145); Total Protein,Serum 6.3 g/dl (6.3-8.2); Triglycerides 111 mg/dl (30-150); VLDL Cholesterol 22 mg/dL (0-40)
[2024-04-19 11:53] LABS: Direct LDL Cholesterol 68.46 mg/dL (100-129)
[2024-04-19 11:58] LABS: Free T4 (Free Thyroxine) 1.14 ng/dl (0.78-2.19)
[2024-04-19 12:12] LABS: Thyroid Stimulating Hormone 1.82 uIU/mL (0.465-4.68)
== END 2024-04-19 23:59 | disposition home or self-care (01) ==
LOC: LAB 10:34
PROVIDERS: PCP Family Medicine; Visit Provider Physician Assistant
DX: I25.10 Atherosclerotic heart disease of native coronary artery without angina pectoris (principal); E78.2 Mixed hyperlipidemia; R53.83 Other fatigue; I10 Essential (primary) hypertension
CPT/HCPCS: 36415; 80048; 80061; 80076; 84439; 84443; 85025

== ENCOUNTER 2024-08-28 08:22 | Outpatient (CLI) | payer MEDICARE, BC, SELFPAY ==
[2024-08-28 09:09] LABS: Basophils % 0.5 % (0.1-2.0); Eosinophils % 0.9 % (0.1-12.0); Hematocrit 46.7 % (42.0-52.0); Hemoglobin 15.5 g/dL (14.1-18.0); Lymphocytes # 1.4 K/mm3 (0.7-4.5); Lymphocytes % 32.1 % (10-50); Mean Corpuscular HGB Conc 33.2 g/dL (31.8-35.4); Mean Corpuscular Volume 87.3 fl (80-94); Mean Platelet Volume 9.8 fl (7.4-10.4); Monocytes # 0.4 K/mm3 (0.1-1.0); Monocytes % 8.1 % (1.7-9.3); Neutrophils # 2.6 K/mm3 (1.8-7.8); Neutrophils % 58.2 % (37.0-80.0); Platelet Count 170 K/mm3 (142-424); Red Blood Count 5.35 M/mm3 (4.60-6.20); Red Cell Distribution Width 12.2 % (11.5-17.5); White Blood Count 4.4 K/mm3 (4.8-10.8)
[2024-08-28 09:37] LABS: Alanine Aminotransferase 22 U/L (12-78); Albumin Level 4.4 g/dl (3.5-5.0); Alkaline Phosphatase 69 U/L (38-126); Anion Gap 8.1 mEq/L (5-15); Aspartate Amino Transferase 27 U/L (17-59); Bilirubin,Direct 0.2 mg/dl (0.0-0.4); Bilirubin,Indirect 0.6 mg/dL (0.0-0.9); Bilirubin,Total 0.8 mg/dl (0.2-1.3); Bilirubin,Unconjugated 0.5 mg/dL (0.0-1.1); Blood Urea Nitrogen 17 mg/dl (9-20); Calcium 9.3 mg/dl (8.4-10.2); Carbon Dioxide 32 mmol/L (22.0-30.0); Chloride 102 mmol/L (98-107); Chol/HDL Ratio 3.3 (1-3.5); Cholesterol 123 mg/dl (140-200); Estimated Glomerular Filt Rate 59 ml/min (>60); GFR (African American) 72 ML/MIN (>60); Glucose 93 mg/dl (74-100); HDL Cholesterol 37 mg/dl (40-60); Magnesium 2.4 mg/dl (1.6-2.3); Potassium 4.1 mmoL/L (3.5-5.1); Sodium 138 mmol/L (136-145); Total Protein,Serum 6.5 g/dl (6.3-8.2); Triglycerides 91 mg/dl (30-150); VLDL Cholesterol 18 mg/dL (0-40)
[2024-08-28 09:48] LABS: Direct LDL Cholesterol 63.09 mg/dL (100-129)
[2024-08-28 09:54] LABS: Free T4 (Free Thyroxine) 1.25 ng/dl (0.78-2.19)
[2024-08-28 11:06] LABS: Thyroid Stimulating Hormone 1.86 uIU/mL (0.465-4.68)
== END 2024-08-28 23:59 | disposition home or self-care (01) ==
LOC: LAB 08:23
PROVIDERS: PCP Family Medicine; Visit Provider Physician Assistant
DX: I50.33 Acute on chronic diastolic (congestive) heart failure (principal); R60.1 Generalized edema; I10 Essential (primary) hypertension; Z98.890 Other specified postprocedural states; I25.10 Atherosclerotic heart disease of native coronary artery without angina pectoris; E78.2 Mixed hyperlipidemia; R53.83 Other fatigue; R42 Dizziness and giddiness; R06.09 Other forms of dyspnea
CPT/HCPCS: 36415; 80048; 80061; 80076; 83735; 84439; 84443; 85025